=== PATIENT | male | born 1940 | race Caucasian/White ===

== ENCOUNTER 2017-08-31 06:20 | Observation (INO) | payer OTHER ==
[2017-08-31] MEDS ORDERED: NS 1,000 ML IV ONE (06:26)
[2017-08-31] MEDS ORDERED: FAMOTIDINE 20 MG TAB PO ONE (06:26)
[2017-08-31] MEDS ORDERED: ASPIRIN EC 325 MG TAB PO ONE (06:26)
[2017-08-31] MEDS ORDERED: DIAZEPAM 5 MG TAB PO ONE (06:26)
[2017-08-31] MEDS ORDERED: diphenhydrAMINE 25 MG CAP PO ONE (06:26)
--- NOTE | 2017-08-31 06:39 | PDHPUP ---
History & Physical Update H&P update statement: This history and physical update is based on an assessment of the patient which was completed after admission or registration (within 24 hours), but prior to the surgery/procedure. H&P update: no change in patient's condition since H&P completed
--- NOTE | 2017-08-31 06:40 | PDPROPOC ---
Sedation Plan of Care Sedation Plan of Care: vital signs stable, mental status noted, patient educated of risks, benefits, alternatives, patient can tolerate sedation ASA Classification: ASA 2 Planned drugs: fentanyl, midazolam Mallampati Score: Class 2 Mallampati Reference Image: Patient passed 3-3-2 rule?: Yes
--- NOTE | 2017-08-31 06:41 | CPEKG ---
Heart Rate: 55 RR Interval: 1091 P-R Interval: 200 QRSD Interval: 128 QT Interval: 436 QTC Interval: 417 P [place]: 53 QRS [place]: -58 T Wave [place]: 37 EKG Severity - ABNORMAL ECG - EKG Impression: SINUS RHYTHM EKG Impression: LEFT BUNDLE BRANCH BLOCK Electronically Signed By: Perez Reyna 31-Aug-2017 15:55:05
[2017-08-31] MEDS ORDERED: IOPAMIDOL (ISOVUE-370) 150 ML BTL IV ONE (06:50)
[2017-08-31] MEDS ORDERED: MIDAZOLAM 2 MG/2 ML VIAL ONE (06:50)
[2017-08-31] MEDS ORDERED: LIDOCAINE 1% 300 MG/30 ML SDV ONE (06:50)
[2017-08-31] MEDS ORDERED: fentaNYL 100 MCG/2 ML INJ ONE (06:50)
[2017-08-31 06:55] LABS: % IMMATURE GRANULYOCYTES 0.2 % (0.0-1.1); ABSOLUTE IMMATURE GRANULOCYTES 0.01 10^3/uL (0.00-0.10); ADD DIFF? NO; ADD MORPH? NO; ADD SCAN? NO; ATYPICAL LYMPHOCYTE FLAG 0 (0-99); FRAGMENT RBC FLAG 0 (0-99); HEMATOCRIT 43.9 % (40.0-51.0); LEFT SHIFT FLG 0 (0-99); LIPEMIA HEMOLYSIS FLAG 90 (0-99); MEAN CELL HEMOGLOBIN 31.3 pg (27.9-34.1); MEAN CELL HEMOGLOBIN CONCENTR. 34.2 g/dL (32.4-36.7); MEAN CELL VOLUME 91.5 fL (81.5-99.8); MEAN PLATELET VOLUME 10.5 fL (8.7-11.7); PLATELET CLUMPS FLAG 10 (0-99); PLATELET COUNT 161 10^3/uL (150-400); RED CELL DISTRIBUTION WIDTH 12.6 % (11.5-15.2)
[2017-08-31] MEDS ORDERED: CLOPIDOGREL BISULFATE 75 MG TAB PO ONE (07:00)
[2017-08-31 07:04] LABS: PROTIME(PATIENT) 13.1 SEC (12.0-15.0)
[2017-08-31 07:28] LABS: ANION GAP 13 mEq/L (8-16); CALCIUM 9.2 mg/dL (8.5-10.4); CARBON DIOXIDE 25 mEq/l (22-31); CHLORIDE 105 mEq/L (97-110); CHOLESTEROL 164 mg/dL (140-220); CHOLESTEROL/HDL RATIO 3.09 RATIO (1.00-4.97); CREATININE 0.9 mg/dL (0.7-1.3); GLOMERULAR FILTRATION RATE > 60; GLUCOSE 95 mg/dL (70-100); HIGH DENSITY LIPOPROTEIN 53 mg/dL (40-65); LDL/HDL RATIO 1.89 RATIO (1.00-3.64); LOW DENSITY LIPOPROTEIN 100 mg/dL (80-100); MAGNESIUM 1.9 mg/dL (1.6-2.3); NON-HIGH DENSITY LIPOPROTEIN 111 mg/dL (90-129); POTASSIUM 4.3 mEq/L (3.5-5.2); SODIUM 143 mEq/L (134-144); TRIGLYCERIDE 57 mg/dL (40-150); VERY LOW DENSITY LIPOPROTEINS 11 mg/dL (8-25)
[2017-08-31] MEDS ORDERED: BIVALIRUDIN 250 MG/5 ML VIAL IV ONE (07:43)
[2017-08-31] MEDS ORDERED: ATROPINE SULFATE 1 MG/10 ML SYR ONE (07:50)
[2017-08-31] MEDS ORDERED: NITROGLYCERIN 1,500 MCG/15 ML VIAL MISC ONE (08:13)
[2017-08-31] MEDS ORDERED: OXYCODONE/APAP 5/325 TAB PO PRN (08:43)
[2017-08-31] MEDS ORDERED: NITROGLYCERIN 0.4 MG BTL SL PRN (08:43)
[2017-08-31] MEDS ORDERED: ATROPINE SULFATE 1 MG/10 ML SYR IVP PRN (08:43)
[2017-08-31] MEDS ORDERED: ONDANSETRON 4 MG/2 ML VIAL IVP PRN (08:43)
[2017-08-31] MEDS ORDERED: TEMAZEPAM 15 MG CAP PO PRN (08:43)
[2017-08-31] MEDS ORDERED: HYDROCODONE/APAP 5/325 TAB PO PRN (08:43)
[2017-08-31] MEDS ORDERED: LORazepam 2 MG/ML INJ IVP PRN (08:43)
--- NOTE | 2017-08-31 09:26 | CPEKG ---
Heart Rate: 45 RR Interval: 1333 P-R Interval: 200 QRSD Interval: 124 QT Interval: 480 QTC Interval: 416 P [place]: 40 QRS [place]: -58 T Wave [place]: 29 EKG Severity - ABNORMAL ECG - EKG Impression: SINUS BRADYCARDIA EKG Impression: LEFT BUNDLE BRANCH BLOCK Electronically Signed By: Perez Reyna 31-Aug-2017 15:55:00
--- NOTE | 2017-08-31 17:38 | CPIP ---
[f rep st] INVASIVE CARDIAC PROCEDURE DATE OF PROCEDURE: 08/31/2017 INDICATIONS FOR PROCEDURE: Abnormal stress test, dyspnea on exertion. PROCEDURE: 1. Nonselective right coronary sheathogram. 2. Bilateral coronary angiography. 3. Left heart catheterization. 4. Left ventriculogram. 5. Percutaneous coronary intervention of high-grade mid-LAD disease utilizing Synergy 2.5 x [address] ug-eluting stent and Synergy 3.0 x 20 mm drug-eluting stent. HISTORY: Briefly, this is a 76-year-old male with history of coronary artery disease noted, status p ost PCI to his circumflex approximately 4 years ago. 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 The patient had been having worsening dyspnea on exertion as an outpatient. 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 Of note, the patient's last catheterization did show approximately 60% to 70% lesion in the mid -LAD which was not addressed. DESCRIPTION OF PROCEDURE: After informed consent, [facility] here the patient's right groin was prepped and draped in the usual sterile fashion and injected with lidocaine. A short 6-Tamazight sheath was introduced into the right common femoral artery, verified ang iographically. The patient was administered 600 Plavix p.o. A JL4 catheter was advanced to the left coronary artery. Images of left coronary artery revealed a 20% mid left main. Left circumflex jaleel ry appeared to be codominant circulation. There was a marginal 1 coming off proximally, which had mi ld 20% disease in it proximally and distally had another area 40% tubular disease. The stents in the circumflex were widely patent. The LPLS appeared to be widely patent and free of disease. In the p roximal aspect of the circumflex stent was an area of 30% focal narrowing, which is most likely secon shahnaz to calcification rather than ISR. The LAD was a long vessel which wrapped around the apex. Of note, the LAD had a focal area of 80% to 90% stenosis. Just proximal to the stenosis was tubular 50% to 60% narrowing and distal to the stenosis another area of 50% to 60% narrowing. There was a diffu sely diseased small diagonal artery coming off this area with a lesion with 50% to 60% diffuse diseas e in its branches. After images had been obtained, the JL4 catheter was removed. The JR4 catheter w as advanced to the right coronary artery. Images of the right coronary artery revealed 100% occluded proximal RCA. Of note, with a left coronary injection, there was faint collateralization to what ap peared to be a small RPDA coming off the circumflex and LAD collaterals. JR4 catheter was removed. Pigtail catheter was advanced to the left ventricle. EDP was 50 mmHg. Left ventriculogram in the RA O position showed EF of 65% with no wall motion abnormalities. No pullback gradient between the LV a nd aorta. Catheter was removed over the 0.035 guidewire. INTERVENTIONAL REPORT: At this time, patient was started on Angiomax bolus and drip. EBU 3.5 guide was advanced to left coronary artery. A ChoICE PT wire was placed down the LAD. Predilatation comme nced across the LAD with a 2.5 x 15 mm compliant balloon at 12 atmospheres performed. We then procee d with stenting initially of the area just distal to the lesion with a 2.5 x 24 Synergy drug-eluting stent, which was deployed successfully at 16 atmospheres. After deployment, we then deployed a 3.0 x 20 mm Synergy stent across the lesion and into the proximal area of disease at 16 atmospheres. This was done in overlapping fashion with the previously placed stent. After this was performed, angiogr aphic exam showed excellent patency of the stented areas with no evidence of dissection or perforatio n. The diagonal artery was still patent with no ostial impingement. The wire was removed. The guid e catheter was removed over the 0.035 wire. The right groin was sutured in place. Patient tolerated the procedure well. No complications. IMPRESSION: 1. Successful percutaneous intervention of high-grade left anterior descending artery disease utiliz ing two overlapping Synergy drug-eluting stents. 2. Patent stents to left circumflex artery with mild disease in the LPLS. 3. Mild to moderate disease in the obtuse marginal 1 artery as well as diffuse disease in a small di agonal artery. 4. Occluded right coronary artery. 5. Normal ejection fraction. PLAN: The patient will have the sheath discontinued in 2 hours time. He will be kept overnight. If clinically stable, he will be discharged in 24 hours. /[id number]/MODL
[2017-08-31] MEDS: ATORVASTATIN CALCIUM 40 MG TAB PO SCH (17:52)
[2017-08-31] MEDS: CARVEDILOL 3.125 MG TAB PO SCH (17:52)
[2017-09-01 04:37] LABS: % IMMATURE GRANULYOCYTES 0.3 % (0.0-1.1); ABSOLUTE IMMATURE GRANULOCYTES 0.02 10^3/uL (0.00-0.10); ADD DIFF? NO; ADD MORPH? NO; ADD SCAN? NO; ATYPICAL LYMPHOCYTE FLAG 0 (0-99); FRAGMENT RBC FLAG 0 (0-99); HEMATOCRIT 43.1 % (40.0-51.0); HEMOGLOBIN 14.7 g/dL (13.7-17.5); LEFT SHIFT FLG 0 (0-99); LIPEMIA HEMOLYSIS FLAG 90 (0-99); MEAN CELL HEMOGLOBIN 31.4 pg (27.9-34.1); MEAN CELL HEMOGLOBIN CONCENTR. 34.1 g/dL (32.4-36.7); MEAN CELL VOLUME 92.1 fL (81.5-99.8); PLATELET CLUMPS FLAG 0 (0-99); PLATELET COUNT 149 10^3/uL (150-400); RED BLOOD CELL COUNT 4.68 10^6/uL (4.40-6.38); RED CELL DISTRIBUTION WIDTH 12.7 % (11.5-15.2)
[2017-09-01 05:03] LABS: ANION GAP 14 mEq/L (8-16); CALCIUM 8.8 mg/dL (8.5-10.4); CARBON DIOXIDE 21 mEq/l (22-31); CHLORIDE 105 mEq/L (97-110); CREATININE 0.9 mg/dL (0.7-1.3); GLOMERULAR FILTRATION RATE > 60; GLUCOSE 87 mg/dL (70-100); POTASSIUM 4.4 mEq/L (3.5-5.2); SODIUM 140 mEq/L (134-144)
[2017-09-01 08:05] VITALS: BP 143/69; PULSE 62; RESP 14; TEMP 98.3; O2SAT 92
[2017-09-01] MEDS: ATORVASTATIN CALCIUM 40 MG TAB PO SCH (08:43)
[2017-09-01] MEDS: CARVEDILOL 3.125 MG TAB PO SCH (08:43)
[2017-09-01] MEDS ORDERED: ASPIRIN EC 81 MG TAB PO SCH (09:00)
[2017-09-01] MEDS ORDERED: CLOPIDOGREL BISULFATE 75 MG TAB PO SCH (09:00)
--- NOTE | 2017-09-01 09:21 | CPEKG ---
Heart Rate: 53 RR Interval: 1132 P-R Interval: 188 QRSD Interval: 130 QT Interval: 460 QTC Interval: 432 P [place]: 45 QRS [place]: -68 T Wave [place]: 40 EKG Severity - ABNORMAL ECG - EKG Impression: SINUS RHYTHM EKG Impression: NONSPECIFIC IVCD WITH LAD EKG Impression: consider previous anterior IA. Electronically Signed By: Perez Reyna 01-Sep-2017 10:17:07
--- NOTE | 2017-09-01 11:00 | ASMTCMCOM ---
CM Note CM Note Notes: 09/01/2017 Case Management Note Met w/pt and . JUSTIN signed. No case management d/c needs identified d/t pt age, activity and family support prior to admission. There were no PT or OT evals ordered. Case Management d/c poc: Home independent with family support when medically stable with follow up as directed. Date Signed: 09/01/2017 10:59 AM Electronically Signed By:Cindy Jarrell RN
--- NOTE | 2017-09-01 11:13 | ASDISCHSUM ---
Discharge Information Plan Status:Home with No Needs Medically Cleared to Leave:08/31/2017 Discharge Date:09/01/2017 10:52 AM CM D/C Disposition:Home, Routine, Self-Care ADT D/C Disposition:Home, Routine, Self-Care Projected Discharge Date:09/01/2017 10:52 AM Transportation at D/C:Family Discharge Delay Reason: Follow-Up Date:09/01/2017 10:52 AM Discharge Slot: Final Diagnosis: Placement Information Patient Contact Information Contact Name:SERA Relationship: Address:[address] City:[place] Alternate Phone: [facility]/Zip Code:[place] [address] Email: Financial Information Financial Class:Medicare Advantage Plans Primary Plan Desc:[employer] Primary Plan Number:[id number] Secondary Plan Desc: Secondary Plan Number: Assessment Information [facility] CM Progress Note CM Note CM Note Notes: 09/01/2017 Case Management Note Met w/pt and . JUSTIN signed. No case management d/c needs identified d/t pt age, activity and family support prior to admission. There were no PT or OT evals ordered. Case Management d/c poc: Home independent with family support when medically stable with follow up as directed. Date Signed: 09/01/2017 10:59 AM Electronically Signed By:Cindy Jarrell RN Intervention Information Intervention Type:*ANDERSON-Signed Date of Service:09/01/2017 10:52 AM Patient Type:Observation Staff Member:CHRISTIANO Jarrell Hillary Hours:0.25 Discipline: Severity: Comment:
--- NOTE | 2017-09-01 11:37 | GDS ---
[f rep st] DISCHARGE SUMMARY DISCHARGE DIAGNOSES: 1. Worsening dyspnea on exertion. 2. Abnormal nuclear stress test with fixed inferior defect. 3. Severely obstructive disease in left anterior descending, status post percutaneous transluminal c oronary angioplasty and stenting with Synergy drug-eluting stents to the midportion of left anterior descending. 4. Untreated dyslipidemia. 5. Hypertension. PROCEDURES: On 08/31/2017: Left heart catheterization with percutaneous intervention to high-grade mid LAD disease utilizing Synergy 2.5 x 24 mm drug-eluting stent, and a 3.0 x 20 mm drug-eluting sten t. Details of left heart catheterization are as follows: Left main with a mid vessel disease of 20% . Left circumflex is codominant. There is 1 obtuse marginal coming off proximally, which had about 20% disease proximally, and another lesion distally of 40%. Patent stents in the circumflex. In the proximal aspect of the circumflex stent there is a 30% focal narrowing, which is likely calcificatio n rather than in-stent restenosis. The LAD is long and wraps around to the apex. There is an 80% to 90% stenosis in the mid vessel just proximal to that stenosis. There is a 50% to 60% tubular stenos is, and distal to that there was a 50% to 60% stenosis. There is a small diagonal with a 50% to 60% diffuse disease. The RCA is 100% occluded. There is faint collateralization from the small PDA comi ng off the circumflex and LAD collaterals. LVEDP of 50 mmHg. EF of 65%. PHYSICIANS: Dr. Escalante. HISTORY: Please see dictated H and P from our office for complete details. In brief, the patient is a 76-year-old male with a history of previous myocardial infarction in 2012. At that time, he had s tenting to his left circumflex. He had been noting worsening dyspnea on exertion without any chest p ain. He proceeded to nuclear stress test and echocardiogram. Echo showed normal LV systolic functio n with mild mitral regurgitation and mild aortic valve calcification without aortic valve regurgitati on. Nuclear stress test showed EKG changes of [address] depression on the stress test portion. Nuclea r images showed medium size moderate intensity fixed entire inferior defect, consistent with infarct with mildly impaired thickening of the left ventricle and inferior hypokinesis. EF was 55%. He was seen by Dr. Escalante and proceeded to left heart catheterization due to worsening dyspnea on exertion. HOSPITAL COURSE BY PROBLEM: 1. Dyspnea on exertion. He was found to be to have severely obstructive disease involving the mid L AD, status post PTCA and stenting. We reviewed the importance of dual antiplatelet therapy. He has been sent with a prescription of Plavix, and he will remain on his aspirin therapy. 2. Dyslipidemia. Lipids on this admission with a total cholesterol 164, triglycerides 57, LDL of 10 0, HDL 53. He has been on atorvastatin in the past, but has held it for 1 year due to memory deficit s. He has not noted any improvement in memory deficits since holding his atorvastatin. He will disc uss with Dr. Escalante about whether he would like to try a different statin versus going back on his a torvastatin. PHYSICAL EXAM: VITAL SIGNS: On day of discharge, BP of 143/69, heart rate 62, respirations 14, O2 s aturation 92% on room air, temp of 98.3 degrees Fahrenheit. GENERAL: He is a very pleasant male in no apparent distress. EYES: PERRL. HEART: Regular rate and rhythm. LUNGS: Clear. Right groin s ite without bruit or ecchymosis present. LABORATORY DATA: BMP with sodium 140, potassium 4.4, chloride 105, CO2 21, BUN 19, creatinine 0.9, g lucose 87. CBC with WBC 6.08, hemoglobin 14.7, hematocrit 43.1, platelet count 149. DIET: We reviewed different types of diets for secondary prevention. ACTIVITY: Groin precautions reviewed. He is also advised to consider cardiac rehab. This will be a ddressed in the outpatient setting. DISCHARGE MEDICATIONS: Please see med reconciliation for complete details. He is being discharged o n his home vitamin B complex, carvedilol, aspirin, multivitamin. His new prescription is for Plavix 75 mg p.o. daily. This was sent to his pharmacy on day of discharge. DISCHARGE INSTRUCTIONS: 1. Groin precautions. 2. Maintain followup. 3. Consider cardiac rehab. /[id number]/MODL
== END 2017-09-01 10:52 | disposition home or self-care (01) ==
LOC: FCATH 06:20 → F2W 08:43
PROVIDERS: ADMIT Internal Medicine Cardiovascular Disease; ATTEND Internal Medicine Cardiovascular Disease
PROC: B2111ZZ Fluoroscopy of Multiple Coronary Arteries using Low Osmolar Contrast (ICD-10-PCS; principal; 2017-08-31)
PROC: B2151ZZ Fluoroscopy of Left Heart using Low Osmolar Contrast (ICD-10-PCS; principal; 2017-08-31)
PROC: 027134Z Dilation of Coronary Artery, Two Arteries with Drug-eluting Intraluminal Device, Percutaneous Approach (ICD-10-PCS; principal; 2017-08-31)
PROC: 4A023N8 Measurement of Cardiac Sampling and Pressure, Bilateral, Percutaneous Approach (ICD-10-PCS; principal; 2017-08-31)
DX: I25.10 Atherosclerotic heart disease of native coronary artery without angina pectoris (principal); R06.09 Other forms of dyspnea; R94.39 Abnormal result of other cardiovascular function study; E78.5 Hyperlipidemia, unspecified; I10 Essential (primary) hypertension; I25.2 Old myocardial infarction; Z95.5 Presence of coronary angioplasty implant and graft
CPT/HCPCS: 93005; 93458; C1725; C1769; C1874; C1887; C9600; G0378; J0583; J1644; J2250; J3010; Q9967; J0461

== ENCOUNTER → 2018-07-17 | Outpatient (CLI) | payer OTHER | LOC: SBRMNEURO 21:00 | PROVIDERS: ATTEND Physician Assistant Medical | DX: G47.33 Obstructive sleep apnea (adult) (pediatric) (principal); G47.50 Parasomnia, unspecified ==